=== PATIENT | female | born 1930 | race Caucasian/White ===

== ENCOUNTER → 2018-03-13 | Outpatient (CLI) | payer OTHER ==
[~2018-03-13] MED LIST: ASCO500 PO; ASPI81CH PO; HYDPAM50 PO; MULVIT PO
[2018-03-16 09:50] LABS: Adenovirus F 40/41 Not Detected (NOT DETECT); Astrovirus Not Detected (NOT DETECT); Campylobacter Sp Not Detected (NOT DETECT); Cryptosporidium Not Detected (NOT DETECT); Cyclospora Cayetanensis Not Detected (NOT DETECT); E. Coli O157 Not Detected (NOT DETECT); Entamoeba Histolytica Not Detected (NOT DETECT); Enteroaggregative E. coli-EAEC Not Detected (NOT DETECT); Enteropathogenic E. coli-EPEC Not Detected (NOT DETECT); Enterotoxigenic E. coli-ETEC Not Detected (NOT DETECT); Giardia Lamblia Not Detected (NOT DETECT); Norovirus GI/GII Not Detected (NOT DETECT); Plesiomonas Shigelloides Not Detected (NOT DETECT); Rotavirus A Not Detected (NOT DETECT); Salmonella Sp Not Detected (NOT DETECT); Sapovirus Not Detected (NOT DETECT); Shiga Toxin-prod E. coli-STEC Not Detected (NOT DETECT); Shigella/Enteroin E. coli-EIEC Not Detected (NOT DETECT); Vibrio Cholerae Not Detected (NOT DETECT); Vibrio Sp Not Detected (NOT DETECT); Yersinia Enterocolitica Not Detected (NOT DETECT)
== END ==
LOC: LAB SHORT 19:00 → LAB 19:00
PROVIDERS: Internal Medicine
DX: R19.7 Diarrhea, unspecified (principal)
CPT/HCPCS: 87507

== ENCOUNTER → 2019-01-07 | Outpatient (CLI) | payer OTHER ==
[2019-01-08 13:29] LABS: Adenovirus F 40/41 Not Detected (NOT DETECT); Astrovirus Not Detected (NOT DETECT); Campylobacter Sp Not Detected (NOT DETECT); Cryptosporidium Not Detected (NOT DETECT); Cyclospora Cayetanensis Not Detected (NOT DETECT); E. Coli O157 Not Detected (NOT DETECT); Entamoeba Histolytica Not Detected (NOT DETECT); Enteroaggregative E. coli-EAEC Not Detected (NOT DETECT); Enteropathogenic E. coli-EPEC Not Detected (NOT DETECT); Enterotoxigenic E. coli-ETEC Not Detected (NOT DETECT); Giardia Lamblia Not Detected (NOT DETECT); Norovirus GI/GII Not Detected (NOT DETECT); Plesiomonas Shigelloides Not Detected (NOT DETECT); Rotavirus A Not Detected (NOT DETECT); Salmonella Sp Not Detected (NOT DETECT); Sapovirus Not Detected (NOT DETECT); Shiga Toxin-prod E. coli-STEC Not Detected (NOT DETECT); Shigella/Enteroin E. coli-EIEC Not Detected (NOT DETECT); Vibrio Cholerae Not Detected (NOT DETECT); Vibrio Sp Not Detected (NOT DETECT); Yersinia Enterocolitica Not Detected (NOT DETECT)
== END | disposition home or self-care (01) ==
LOC: LAB 19:30 → LAB SHORT 19:30 → LAB FUT 01-05 10:30
PROVIDERS: Internal Medicine
DX: R19.7 Diarrhea, unspecified (principal)
CPT/HCPCS: 87507

== ENCOUNTER 2019-06-07 11:56 | Inpatient (IN) | payer OTHER ==
[~2019-06-07] VITALS: Ht 152.4 cm; Wt 41.7 kg
[~2019-06-07 11:56] MED LIST changes: -ASPI81CH PO; +Aspirin EC81 MG PO; +HYDPAM25 PO; -HYDPAM50 PO
[2019-06-07 12:32] LABS: Hematocrit 50.1 % (33.0-51.0); Mean Corpuscular HGB 26.7 pg (26.0-34.0); Mean Corpuscular HGB Conc 29.9 g/dL (31.5-36.5); Mean Corpuscular Volume 89 fL (80-100); Mean Platelet Volume 11.8 fL (9.1-12.4); Platelet Count 172 K/mm3 (150-400); RDW Coefficient Variation 15.6 % (11.7-14.2); RDW Standard Deviation 49.3 fL (35.1-46.3); Red Blood Cell Count 5.61 M/mm3 (3.80-5.20)
[2019-06-07 12:42] LABS: White Blood Cell Count 148.78 K/mm3 (4.00-11.30)
[2019-06-07 12:49] LABS: Albumin, Blood 4.5 g/dL (3.4-5.0); Albumin/Globulin Ratio 1.6 (0.8-1.8); Bilirubin, Total 1.2 mg/dL (0.1-1.0); Bun/Creatinine Ratio 30.7 (12.0-20.0); Creatinine, Blood 1.14 mg/dL (0.40-1.00); Globulin, Blood 2.8 g/dL (2.2-4.0); Potassium, Blood 5.9 mmol/L (3.5-5.5); Total Protein, Blood 7.3 g/dL (6.4-8.2)
[2019-06-07] MEDS ORDERED: FURO20 PO (13:04)
[2019-06-07] MEDS ORDERED: CHOL10002 PO (13:05)
[2019-06-07] MEDS ORDERED: POTA20LUD PO (13:05)
[2019-06-07 13:31] LABS: Source, Urine Catheter
[2019-06-07 13:35] LABS: Blood, Urine Neg (Neg); Glucose Qualitative, Urine Neg (Neg); Ketones, Urine 1+ (Neg); Leukocyte Esterase, Urine 1+ (Neg); Nitrite, Urine Neg (Neg); Protein, Urine 2+ (Neg); Urobilinogen, Urine 1+ (Normal)
[2019-06-07 13:45] LABS: BASOPHILS PERCENT MAN 0 % (0-2); EOSINOPHILS PERCENT MAN 0 % (0-6); LYMPHOCYTES ABSOLUTE MAN 138.36 K/mm3 (0.84-5.20); LYMPHOCYTES PERCENT MAN 93 % (21-46); MONOCYTES ABSOLUTE MAN 1.48 K/mm3 (0.16-1.47); MONOCYTES PERCENT MAN 1 % (4-13); NEUTROPHILS ABSOLUTE MAN 8.92 K/mm3 (1.96-9.15); SEG NEUTROPHILS PERCENT MAN 6 % (41-73); TOTAL CELLS COUNTED 100
[2019-06-07 13:57] LABS: Bilirubin, Urine 1+ (Neg)
[2019-06-07 13:58] LABS: Appearance, Urine Clear (Clear); Color, Urine Yellow (P-Yellow)
[2019-06-07 13:59] LABS: Bacteria Few /hpf; Red Blood Cells, Urine 0-2 /hpf (0-2); Squamous Epithelial Cells Few /hpf (Few)
--- NOTE | 2019-06-08 07:01 | NUR ---
SHIFT SUMMARY HAS RESTED WITH EASE THIS SHIFT. NO OUTPUT NOTED FROM NG TUBE. REPORTS NO MORE BLOATING OR DISCOMFORT TO ABDOMEN. STATES, "IT FEEL SLIKE IT WOULD AFTER HAVING A BABY, EMPTY." DENIES PAIN, DISCOMFORT. OT FURTHER NEEDS AT THIS TIME. SAFETY MEASURES IN PLACE. WILL GIVE HAND OFF TO ONCOMING SHIFT USING SBAR.
[2019-06-08 10:54] LABS: Anion Gap 6 mmol/L (6-16); Blood Urea Nitrogen 35 mg/dL (8-24); Bun/Creatinine Ratio 43.4 (12.0-20.0); CO2, Blood 33 mmol/L (21-32); Calcium, Blood 8.3 mg/dL (8.5-10.1); Chloride, Blood 99 mmol/L (98-108); Creatinine, Blood 0.81 mg/dL (0.40-1.00); Glomerular Filtration Rate >60 (60-); Glucose, Blood 67 mg/dL (70-99); Potassium, Blood 5.4 mmol/L (3.5-5.5); Sodium, Blood 138 mmol/L (136-145)
--- NOTE | 2019-06-08 17:55 | NUR ---
SHIFT SUMMARY PT HAS DENIED PAIN OR NAUSEA T/O SHIFT. ABD CONTINUES TO BE SOFT AND NONTENDER TO GENTLE PALPTATION. SCANT ICE CHIPS GIVEN. PT UNABLE TO USE IS DUE TO NGT BUT PT DID FOLLOW INTRUCTIONS TO [facility]. PT STATES SHE IS UNSURE IF SHE IS PASSING GAS BUT THIS RN DID NOT HEAR PT PASS ANY GAS TODAY.
[2019-06-09 05:09] LABS: Hematocrit 41.5 % (33.0-51.0); Mean Corpuscular HGB 27.3 pg (26.0-34.0); Mean Corpuscular HGB Conc 28.9 g/dL (31.5-36.5); Mean Platelet Volume 11.8 fL (9.1-12.4); Platelet Count 92 K/mm3 (150-400); RDW Coefficient Variation 14.9 % (11.7-14.2); RDW Standard Deviation 51.3 fL (35.1-46.3); Red Blood Cell Count 4.39 M/mm3 (3.80-5.20)
[2019-06-09 05:18] LABS: Mean Corpuscular Volume 95 fL (80-100); White Blood Cell Count 58.21 K/mm3 (4.00-11.30)
[2019-06-09 05:23] LABS: Anion Gap 6 mmol/L (6-16); Blood Urea Nitrogen 31 mg/dL (8-24); Bun/Creatinine Ratio 50.1 (12.0-20.0); CO2, Blood 32 mmol/L (21-32); Calcium, Blood 8.2 mg/dL (8.5-10.1); Chloride, Blood 102 mmol/L (98-108); Creatinine, Blood 0.62 mg/dL (0.40-1.00); Glomerular Filtration Rate >60 (60-); Glucose, Blood 57 mg/dL (70-99); Potassium, Blood 5.1 mmol/L (3.5-5.5); Sodium, Blood 140 mmol/L (136-145)
[2019-06-09 05:48] LABS: BASOPHILS PERCENT MAN 0 % (0-2); EOSINOPHILS PERCENT MAN 0 % (0-6); LYMPHOCYTES ABSOLUTE MAN 54.13 K/mm3 (0.84-5.20); LYMPHOCYTES PERCENT MAN 93 % (21-46); MONOCYTES PERCENT MAN 0 % (4-13); NEUTROPHILS ABSOLUTE MAN 4.07 K/mm3 (1.96-9.15); SEG NEUTROPHILS PERCENT MAN 7 % (41-73); TOTAL CELLS COUNTED 100
--- NOTE | 2019-06-09 06:49 | NUR ---
SHIFT SUMMARY HAS RESTED WITH EASE THIS SHIFT. NO OUTPUT NOTED FROM NG TUBE. REPORTS NO MORE BLOATING OR DISCOMFORT TO ABDOMEN. CRITICAL VALUE ON WBC'S RECEIVED, IMPROVEMENT NOTED. DENIES PAIN, DISCOMFORT. OT FURTHER NEEDS AT THIS TIME. SAFETY MEASURES IN PLACE. WILL GIVE HAND OFF TO ONCOMING SHIFT USING SBAR.
--- NOTE | 2019-06-09 19:27 | NUR ---
SHIFT SUMMARY PT HAD IMAGING COMPLETED TODAY AND IMMEDIATELY BEGAN HAVING LOOSE BMS THAT TURNED TO PELLETS. ABD SOFT AND NONTENDER SINCE IMAGING. DR ROBERTS INTO SEE PT THIS EVENING AND D/C'D NGT AND BEGAN ON SMALL AMOUNTS OF CLEAR LQS.
--- NOTE | 2019-06-10 06:31 | NUR ---
SHIFT SUMMARY HAS RESTED WITH EASE THIS SHIFT. AMBULATED TO BSC SEVERAL TIME THROUGHOUT SHIFT. WITH EACH URINATION A SMALL AMOUNT OF LOOSE LIQUID STOOL HAS PASSED. DENIES PAIN, DISCOMFORT. OT FURTHER NEEDS AT THIS TIME. SAFETY MEASURES IN PLACE. WILL GIVE HAND OFF TO ONCOMING SHIFT USING SBAR.
--- NOTE | 2019-06-10 10:35 | NUR ---
pt's daughter, medical POA here, requests to be updated of imaging studies, reviewed with pt. care management called to speak with adrieluther re: discharge planning.
--- NOTE | 2019-06-10 16:04 | NUR ---
shift summary: vss, no acute changes. pt tolerated advanced diet to full liquids, no n/v. pt with active bowel tones, bm x 2 this shift, urine output 350 ml this shift. pt states no abd pain or nauseousness. pt's daughter visited x 1 this shift and consulted with care management MICHELLE Godoy. dr castañeda rounded on pt this shift. pt remained a/0 x 4, pleasant/cooperative, somewhat SELDOV[place]. pt requested clarification of imaging studies which were provided to pt and her daughter.
--- NOTE | 2019-06-10 17:49 | NUR ---
dr rudd to recheck pt, daughter spoke with and this RN. orders for PT eval/treatment tomorrow. spoken with pt, pt states she is unwilling to go to SNF, states the food is not good quality, states she wishes to "go home and ", to be left alone.
--- NOTE | 2019-06-10 19:57 | NUR ---
Initial Visit: Palliative Care Consult for psych/soc/moral distress/, AD/POLST, and Advanced Care Planning. Pt is A&OX4 and denies pain at this time. Pt denies dyspnea at this time. Pt reports 3/7 anxiety due to being in the hospital and not wanting SNF. Engaged in therapeutic discussion regarding goals of care. Listened as Pt expresses frustrations regarding discussion of rehabilitation at SNF. Pt reports she lives at home alone and has a caregiver that comes twice a week for 3 hours each visit. Pt reports at baseline she uses a 4 wheeled walker independently, showers, and dresses independently. 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 Listened as she expresses frustrations regarding her wishes are not being considered. She reports if rehabilitation is needed that she would like to receive this through home health. Discussed current POLST on file and Pt reports POLST reflects her current wishes which are DNR, Limited Treatment, and No Tube Feeding. Pt reports no other concerns and is agreeable for continued therapeutic visits. Called and spoke with Pt's daughter Christina ([email or web address]) and confirmed Pt's wishes of coded status. Daughter is agreeable. Called and spoke with Yossi TAYLOR regarding POLST and code status. Placed order for DNR code status per V/O from Yossi. Palliative Care will F/U for therapeutic visits.
--- NOTE | 2019-06-10 20:09 | NUR ---
Late Entry from previous visit. Discussion was made regarding Pt's statement of "wanting to go home and ". Pt reports this statement was made out of frustration.
--- NOTE | 2019-06-11 06:55 | NUR ---
recvd report from previous rn bruna, pt asleep in bed, bed in lowest position, bed rails up x 2, call light within reach
--- NOTE | 2019-06-11 07:17 | NUR ---
SHIFT SUMMARY PT UP IN HALLS YESTARDAY EVENING. DENIES PAIN/NAUSEA T/O NIGHT. RESTED WELL THIS AM. LISY. REPORT TO MICHELLE KUO. CALL LIGHT IN REACH + PT RESTING AT THIS TIME.
--- NOTE | 2019-06-11 08:35 | NUR ---
pt ambulatng in [place] with Physical therapy
--- NOTE | 2019-06-11 13:00 | NUR ---
peripheral IV removed WNL. provided pt and caregiver with discharge instructions, printed material. pt escorted to awaiting vehicle by caregiver with her own belongings via wheelchair. pt and caregiver state understanding of instructions.
== END 2019-06-11 13:40 | disposition home or self-care (01) | DRG 388 ==
LOC: ER 11:56 → SURS 11:57 → ER 15:32 → SURS 15:32
PROVIDERS: Emergency Medicine; Internal Medicine; Physician Assistant; ADMIT Surgery
DX: K56.609 Unspecified intestinal obstruction, unspecified as to partial versus complete obstruction (principal); E43 Unspecified severe protein-calorie malnutrition; N17.9 Acute kidney failure, unspecified; C91.10 Chronic lymphocytic leukemia of B-cell type not having achieved remission; K40.30 Unilateral inguinal hernia, with obstruction, without gangrene, not specified as recurrent; Z68.1 Body mass index [BMI] 19.9 or less, adult; J44.9 Chronic obstructive pulmonary disease, unspecified; M81.0 Age-related osteoporosis without current pathological fracture; F41.1 Generalized anxiety disorder; E16.2 Hypoglycemia, unspecified; E78.5 Hyperlipidemia, unspecified; F17.210 Nicotine dependence, cigarettes, uncomplicated; Z88.1 Allergy status to other antibiotic agents; Z79.82 Long term (current) use of aspirin; Z79.899 Other long term (current) drug therapy; Z86.73 Personal history of transient ischemic attack (TIA), and cerebral infarction without residual deficits
CPT/HCPCS: 36415; 74177; 74250; 80048; 80053; 81001; 83605; 85025; 93005; 93010; 96361; 96372; 96374; 97116; 97162; 97530; 99284-25; G0378; J1170; J1650; J2405; J7030; J7120; Q9967

== ENCOUNTER 2020-04-07 12:18 | Emergency (ER) | payer OTHER ==
[~2020-04-07] VITALS: Ht 152.4 cm; Wt 45.4 kg
[~2020-04-07 12:18] MED LIST changes: +CHOL10002 PO; +FURO20 PO; +POTA20LUD PO
== END 2020-04-07 18:35 | disposition home or self-care (01) ==
LOC: ER 12:18
DX: S80.02XA Contusion of left knee, initial encounter (principal); J44.9 Chronic obstructive pulmonary disease, unspecified; C91.10 Chronic lymphocytic leukemia of B-cell type not having achieved remission; F41.1 Generalized anxiety disorder; E78.5 Hyperlipidemia, unspecified; F17.210 Nicotine dependence, cigarettes, uncomplicated; Z88.1 Allergy status to other antibiotic agents; Z88.8 Allergy status to other drugs, medicaments and biological substances; Z79.899 Other long term (current) drug therapy; Z79.82 Long term (current) use of aspirin; Z86.73 Personal history of transient ischemic attack (TIA), and cerebral infarction without residual deficits; W18.30XA Fall on same level, unspecified, initial encounter
CPT/HCPCS: 29505; 73562-LT; 99283-25